=== PATIENT | female | born 2000 | race Two or more races ===

== ENCOUNTER 2021-10-13 21:03 | Emergency (ER) | payer OTHER ==
[~2021-10-13] VITALS: Ht 170.2 cm; Wt 68.2 kg
[2021-10-13 21:50] VITALS: BP 136/80
[2021-10-13 23:17] LABS: COVID AG,FIA SOURCE NASOPHARYNGEAL
[2021-10-15 04:06] LABS: HIV 1-2 SCREEN 4TH GEN W/RFLX Non Reactive (Non Reactive)
== END 2021-10-14 00:40 | disposition home or self-care (01) ==
LOC: EDBD 21:12 → EMS 21:12
DX: R11.0 Nausea (principal); Z20.822 Contact with and (suspected) exposure to COVID-19; Z11.3 Encounter for screening for infections with a predominantly sexual mode of transmission
CPT/HCPCS: 36415; 86592; 87389; 87426; 87491; 87591; 99283; U0003

== ENCOUNTER 2021-11-10 03:36 | Emergency (ER) | payer OTHER ==
[~2021-11-10] VITALS: Ht 170.2 cm; Wt 68.2 kg
[2021-11-10 03:53] VITALS: BP 131/84
== END 2021-11-10 06:19 | disposition left against medical advice (07) ==
LOC: EMS 03:39
DX: Z00.00 Encounter for general adult medical examination without abnormal findings (principal); Z53.21 Procedure and treatment not carried out due to patient leaving prior to being seen by health care provider
CPT/HCPCS: 99283